=== PATIENT | female | born 1935 | race Caucasian/White ===

== ENCOUNTER 2018-01-19 12:27 | Outpatient (CLI) | payer MEDICARE, OTHER, SELFPAY ==
--- NOTE | 2018-01-19 12:31 | DI.RAD.S_ITS ---
PROCEDURE: PAIN L/S TRANSFORAMINAL INJECT INDICATIONS: Right L4/5 TF Sheila FINDINGS: Fluoroscopic spot filming was performed to verify placement of spinal needles at the right L4-5 level(s), as seen on the films. Appropriate location(s) of the needle tip(s) was confirmed by injection of iodinated contrast. IMPRESSION: Intraoperative imaging for lower lumbar injection Dictated by: Delta Dumont M.D. on 01/20/2018 at 8:31 Approved by: Delta Dumont M.D. on 01/20/2018 at 8:32
[2018-01-19 12:58] VITALS: BP 141/84; PULSE 71; RESP 16; TEMP 36.7; O2SAT 97
--- NOTE | 2018-01-19 13:15 | P.PCN_ITS ---
Procedures Date/Time Date of procedure: 01/19/18 Time of procedure: 13:13 General Procedure description: PREOP DIAGNOSIS 1. FORMAINAL STENOSIS WITH LE SYMPTOMS POST OP DIAGNOSIS 1. FORMAINAL STENOSIS WITH LE SYMPTOMS PROCEDURES 1. FLUOROSCOPICALLY GUIDED CONTRAST CONTROLLED TRANSFORAMINAL EPIDURAL STEROID INJECTION - RIGHT L4/5 TFESI PHYSICIAN: Tye España DO INDICATIONS: Wandy is referred by for treatment of Foraminal Stenosis with Right LE Symptoms FINDINGS Foraminal Nerve Root Compression secondary to disc disease and facet hypertrophy DESCRIPTION OF PROCEDURE: Following denial of allergy and review of potential side effects and complications, including, but not necessarily limited to, infection, allergic reaction, local tissue breakdown, stroke, temporary or permanent nerve injury, paralysis, and possible , the patient indicated that the patient understood and agreed to proceed. An informed consent document was signed by the patient, witnessed by a nurse, and placed in the patient's chart. Additionally, other treatment options including medications, modalities, and physical therapy were reviewed with the patient. After review of previous anaesthesic history and IV conscious sedation the patient was deemed safe to proceed with todays procedure with IV conscious sedation as ASA class II designation. Safety time-out was performed to confirm patient ID, procedure to be performed and site of procedure. No IV sedation was administered he patient remained responsive to all verbal commands In the prone position following sterile prep and drape of the lumbar region, the Right L4/5 posterior neuroforamen was identified fluoroscopically. The skin was anesthetized via a 25-gauge 1.5-inch needle with 1% lidocaine solution. At this point, a 25-gauge 3.5-inch spinal needle was atraumatically introduced and advanced under fluoroscopic guidance through the posterior Right L4/5 neuroforamen to approximately the anterior aspect of the canal. Depth was confirmed on lateral view. Following negative aspiration, injection of approximately 1.5 cc of Isovue 200 under live fluoroscopy in the AP view confirmed excellent flow along the nerve root, into the epidural space without vascular or intrathecal uptake observed Radiological data, including multiple fluoroscopic views of the lumbosacral spine, reveal a spinal needle at the right L4/5 posterior neuroforamen. Subsequent views show flow of contrast material flowing superiorly and inferiorly along the nerve root confirming epidural flow. Subsequently, a test dose of 1.5 cc of 1% lidocaine solution was administered and patient was observed for two minutes for signs or symptoms of complications , including abdominal pain, shortness of breath, bilateral upper or lower extremity weakness, nausea and vomiting, prior to steroid injection. At this point, a total of 3 cc or 20 mg of dexamethasone and 80mg Depo Medrol was injected without incident. The procedure tolerated the procedure well without signs or symptoms of complications prior to transfer to the recovery area continued monitoring without incident.The patient was then transferred to the recovery area where they were observed for an appropriate time after the injection. The patient reported a VAS score of 7 prior to the procedure and a post- procedure VAS of 0. Total Fluoroscopy Time: 20.9 seconds Total Conscious Sedation Time: 24min POST OP INSTRUCTIONS The patient was provided a Pain Log to continue to record their response to the target-specific procedure prior to follow-up visit with their referring physician. Additionally, specific post-injection care instructions and a contact number to our office were provided if concerns arise regarding possible complications associated with the procedure are suspected. Tye España, Complications: none
[2018-01-19 13:40] VITALS: BP 133/78; PULSE 81; RESP 16; O2SAT 97
[2018-01-19 13:45] VITALS: BP 138/75; PULSE 79; RESP 16; O2SAT 97
[2018-01-19] MEDS: BUPIVACAINE 0.25% (PF) VIAL 2 ML INJ (13:48)
[2018-01-19 13:50] VITALS: BP 129/72; PULSE 75; RESP 16; O2SAT 98
[2018-01-19] MEDS: IOPAMIDOL 15 ML VIAL 3 ML INJ (13:54)
[2018-01-19] MEDS: methylPREDNISolone acetate 80 MG/ML VIAL INJ (13:55)
[2018-01-19] MEDS: DEXAMETHASONE 10 MG/ML VIAL 20 MG INJ (13:55)
[2018-01-19 13:56] VITALS: BP 135/78; PULSE 84; RESP 16; O2SAT 99
[2018-01-19 14:07] VITALS: BP 144/71; PULSE 75; RESP 18; O2SAT 97
--- NOTE | 2018-01-20 17:55 | PC.NURSE ---
Made follow up call and pt reports doing well. She has not had any pain today and compares it to her April injection where she was in pain even as she left the injection appt. Pt was very kind to let us know how much she enjoyed her experience here at [facility] and felt she got better care here than the previous place.
== END 2018-01-19 14:56 | disposition home or self-care (01) ==
PROVIDERS: PCP Internal Medicine; Visit Provider Physical Medicine & Rehabilitation
DX: M48.061 Spinal stenosis, lumbar region without neurogenic claudication (principal); M54.17 Radiculopathy, lumbosacral region
CPT/HCPCS: 64483; 99152; J1040; J1100; J2250

== ENCOUNTER 2018-02-16 12:28 | Outpatient (CLI) | payer MEDICARE, OTHER, SELFPAY ==
[2018-02-16] VITALS (9 sets, daily range): BP systolic 136–152; BP diastolic 57–82; PULSE 80–98; RESP 18–20; TEMP 36.2; O2SAT 96–100
--- NOTE | 2018-02-16 | DI.RAD.S_ITS ---
PROCEDURE: PAIN L INTERLAMINAR/CAUDAL INJ INDICATIONS: LUMBAR REGION SPINAL STENOSIS FINDINGS: Fluoroscopic spot filming was performed to verify placement of spinal needles at the L3-4 level(s), as labeled on the films. Appropriate location(s) of the needle tip(s) was confirmed by injection of iodinated contrast. IMPRESSION: Successful needle tip localization to the interlaminar epidural space at the L3-4 lumbosacral spine and axial level, for steroid epidural injection. Dictated by: Vadim Barney M.D. on 02/16/2018 at 16:21 Approved by: Vadim Barney M.D. on 02/16/2018 at 16:22
--- NOTE | 2018-02-16 13:35 | P.PCN_ITS ---
Procedures Date/Time Date of procedure: 02/16/18 Time of procedure: 13:34 General Procedure description: PROVIDER: Tye España DO Operative Note PREOP DIAGNOSIS 1. HNP WITH RADICULAR FEATURES, 2. MULTILEVEL CENTRAL STENOSIS, POST OP DIAGNOSIS 1. HNP WITH RADICULAR FEATURES, 2. MULTILEVEL CENTRAL STENOSIS PROCEDURES 1. FLUORSCOPICALLY GUIDED CONTRAST CONTROLLED INTERLAMINAR EPIDURAL STEROID INJECTION -L3/4 PHYSICIAN: Tye España DO INDICATIONs: Wandy is referred by Dr. Abad for treatment of Bilateral Foraminal Stenosis R>L LE symptoms. FINDINGS Multilevel Central Spinal Stenosis with Nerve Root Compression DESCRIPTION OF PROCEDURE Fluoroscopically guided, contrast-controlled L3/4 translaminar epidural steroid injection. Following denial of allergy and review of potential side effects and complications, including, but not necessarily limited to, infection, allergic reaction, local tissue breakdown, temporary as well as permanent nerve injury, paralysis, stroke and possible , the patient indicated that the patient understood and agreed to proceed. An informed consent document was signed by the patient, witnessed by a nurse, and placed in the patient's chart. Additionally, other treatment options including modalities, medications, and physical therapy were reviewed with the patient. After review of previous anaesthesic history and IV conscious sedation the patient was deemed safe to proceed with todays procedure with IV conscious sedation as ASA class II designation. Safety time-out was performed to confirm patient ID, procedure to be performed and site of procedure. IV sedation was deemed not needed by the RN after DO while the patient remained responsive to all verbal commands In the prone position, following sterile prep and drape of the lumbar region, the L3/4 translaminar space was identified fluoroscopically. The skin was anesthetized via a 25-gauge, 1.5-inch needle with 1% lidocaine solution. At this point, a 22-gauge short bevel spinal needle was atraumatically introduced and advanced under fluoroscopic guidance into the region of the L3/4 translaminar space. Depth was confirmed on lateral view. Radiological data, including multiple fluoroscopic views of the lumbar spine, reveal a spinal needle at the L3/4 translaminar space. Lateral views then show placement of the needle in the epidural space. Subsequent views show contrast material flowing superiorly and inferiorly in the epidural space. No vascular or intrathecal uptake is observed. At this point, using loss of resistance technique with saline and air, the epidural space was entered. This was confirmed following negative aspiration with injection of approximately 1.5 cc of Isovue 200, showing excellent epidural flow without vascular or intrathecal uptake. At this point, 1 cc of 1 % lidocaine solution combined with 3 cc or 20 mg of dexamethasone and 80mg Depo medrol was injected without incident. The patient tolerated the procedure well without signs or symptoms of complications prior to transfer to the recovery area continued monitoring without incident. The patient was then transferred to the recovery area where they were observed for an appropriate period of time after the injection. The patient reported a VAS score of 6 prior to the procedure and a post- procedure VAS of 0. Total Fluoroscopy Time: 11.8 seconds, 8.99 mGy Total Conscious Sedation Time: 24min POST OP INSTRUCTIONS The patient was provided a Pain Log to continue to record their response to the target-specific procedure prior to follow-up visit with their referring physician. Additionally, specific post-injection care instructions and a contact number to our office were provided if concerns arise regarding possible complications associated with the procedure are suspected. Tye España DO Complications: none
[2018-02-16] MEDS: DEXAMETHASONE 10 MG/ML VIAL 20 MG INJ (13:45)
[2018-02-16] MEDS: IOPAMIDOL 15 ML VIAL 3 ML INJ (13:45)
[2018-02-16] MEDS: methylPREDNISolone acetate 80 MG/ML VIAL INJ (13:45)
[2018-02-16] MEDS: BUPIVACAINE 0.25% (PF) VIAL 2 ML INJ (13:45)
== END 2018-02-16 14:23 ==
LOC: RAD 12:29
PROVIDERS: PCP Internal Medicine; Visit Provider Physical Medicine & Rehabilitation
DX: M51.16 Intervertebral disc disorders with radiculopathy, lumbar region (principal); M48.061 Spinal stenosis, lumbar region without neurogenic claudication
CPT/HCPCS: 62323; J1040; J1100